=== PATIENT | female | born 1990 | race African-American/Black ===

== ENCOUNTER 2016-09-30 15:28 | Emergency (ER) | payer SELFPAY ==
[2016-09-30 15:32] VITALS: BP 117/74
--- NOTE | 2016-09-30 16:41 | ER Document Report ---
HPI - HPI Patient complains to provider of: cough congestion sore throat Onset: Yesterday Quality of pain: Other - Sore throat Severity: Moderate Pain Level: 3 Associated Symptoms: Body/muscle aches, Chills, Nonproductive cough, Rhinnorhea , Sinus pain/drainage, Sore throat Exacerbated by: Other - Swallowing Relieved by: Denies Similar symptoms previously: Yes Recently seen / treated by doctor: No - ROS ROS below otherwise negative: Yes - CONSTITUTIONAL Constitutional: REPORTS: Fever, Chills - EENT EENT: REPORTS: Sore Throat, Nasal Drainage-Purulent. DENIES: Ear Pain, Nasal Drainage-Clear, Congestion, Eye problems - NEURO Neurology: DENIES: Headache, Weakness, Vision blurred, Dizzinesss / Vertigo - CARDIOVASCULAR Cardiovascular: DENIES: Chest pain - RESPIRATORY Respiratory: REPORTS: Coughing. DENIES: Trouble Breathing - GASTROINTESTINAL Gastrointestinal: DENIES: Abdominal Pain, Nausea, Patient vomiting, Diarrhea, Constipation, Black / Bloody Stools - URINARY Urinary: DENIES: Dysuria, Urgency, Frequency - REPRODUCTIVE Reproductive: DENIES: :, Postmenopausal, Abnormal bleeding / discharge - MUSCULOSKELETAL Musculoskeletal: DENIES: Extremity pain, Back Pain, Neck Pain, Swelling - DERM Skin Color: Normal Skin Problems: None Past Medical History - General Information source: Patient - Social History Smoking Status: Current Every Day Smoker Cigarette use (# per day): Yes - 2-3 cigarettes a day Chew tobacco use (# tins/day): No Smoking Education Provided: Yes - Less than 2 minutes Frequency of alcohol use: Occasional Drug Abuse: None Occupation: technical sales specialist Lives with: Family Family History: Malignancy. denies: Arthritis, CAD, COPD, CVA, DM, Hyperlipidemia, Hypertension, Thyroid Disfunction Patient has suicidal ideation: No Patient has homicidal ideation: No - Past Medical History Cardiac Medical History: Reports: None Pulmonary Medical History: Reports: Hx Asthma EENT Medical History: Reports: None Neurological Medical History: Reports: Hx Migraine Endocrine Medical History: Reports: None Renal/ Medical History: Reports: None Malignancy Medical History: Reports: None GI Medical History: Reports: None Musculoskeltal Medical History: Reports None Skin Medical History: Reports None Psychiatric Medical History: Reports: None Traumatic Medical History: Reports: None Infectious Medical History: Reports: None Past Surgical History: Reports: Hx Section - x2 - Immunizations Hx Diphtheria, Pertussis, Tetanus Vaccination: Yes Vertical Provider Document - CONSTITUTIONAL Agree With Documented VS: Yes Exam Limitations: No Limitations General Appearance: WD/WN - INFECTION CONTROL TRAVEL OUTSIDE OF THE [place] IN LAST 30 DAYS: No - HEENT HEENT: Atraumatic, Normocephalic Notes: Purulent nasal drainage, postnasal drip, redness to throat with no enlargement or exudate to tonsils, tympanic membranes clear no swelling or discharge to the outer ear canal. - NECK Neck: Lymphadenopathy-Left, Lymphadenopathy-Right - RESPIRATORY Respiratory: Breath Sounds Normal, No Respiratory Distress, Chest Non-Tender. negative: Rales, Rhonchi, Wheezing O2 Sat by Pulse Oximetry: 99 - CARDIOVASCULAR Cardiovascular: Regular Rate, Regular Rhythm, No Murmur - GI/ABDOMEN Gastrointestinal: Abdomen Soft, Abdomen Non-Tender, No Organomegaly, Normal Bowel Sounds - BACK Back: Normal Inspection - MUSCULOSKELETAL/EXTREMETIES Musculoskeletal/Extremeties: MAEW, FROM, Non-Tender - NEURO Level of Consciousness: Awake, Alert, Appropriate - DERM Integumentary: Warm, Dry, No Rash Course - Re-evaluation Re-evalutation: 09/30/16 17:31 Strep test positive will treat patient with azithromycin as she is allergic to PCN and have follow-up with primary doctor. 09/30/16 17:37 - Vital Signs Vital signs: Temp Pulse Resp BP Pulse Ox 98.4 F 100 22 H 117/74 99 09/30/16 15:30 09/30/16 15:30 09/30/16 15:30 09/30/16 15:30 09/30/16 15:30 Discharge - Discharge Clinical Impression: Strep pharyngitis Upper respiratory infection Qualifiers: URI type: unspecified URI Qualified Code(s): J06.9 - Acute upper respiratory infection, unspecified Condition: Stable Disposition: HOME, SELF-CARE Additional Instructions: UPPER RESPIRATORY ILLNESS: You have a viral infection of the respiratory passages -- a "cold." This common infection causes nasal congestion, drainage, and often sore throat and cough. It is highly contagious. The disease usually lasts about 10 to 14 days. There is no "cure" for the viral infection -- it must run its course. If there is a complication, such as bacterial infection in the nose, sinuses, middle ear, or bronchial tubes, antibiotics may be required. The antibiotics won't affect the virus. Drink plenty of fluids. A humidifier may help. An expectorant medication or decongestant may make you more comfortable. Use acetaminophen or ibuprofen for fever or aches. See the doctor if fever persists over two days, if there is any significant worsening of your symptoms, or if you simply fail to improve as expected. STREP THROAT: Your sore throat is due to the streptococcus germ (strep throat). Strep throat usually makes you feel quite ill with fever and aches, headache, swollen sore throat, and tender bumps under the angles of the jaw. Strep throat requires antibiotic treatment. Although the sore throat may go away by itself, complications such as rheumatic fever, kidney disease, or throat abscess can occur. We usually prescribe antibiotics by mouth. Be sure to take the medicine until it's gone. If you stop early, the strep may come back. If you are vomiting, are severely ill, or can't remember to take pills, we can give you an antibiotic shot. Take acetaminophen or ibuprofen for pain and fever. Sip frequent clear liquids, or use popsicles or ice chips. Anesthetic sprays or lozenges may help. Make sure the air in the room is not too dry. Avoid using decongestants or antihistamines. Call the doctor if there is no improvement in three days, or if you have difficulty breathing, increasing throat pain, high fever, rash, or frequent vomiting. Azithromycin Azithromycin (Zithromax) is a broad spectrum antibiotic in the same class as erythromycin. It can treat a variety of bacterial infections, but is most frequently used for respiratory infections. Azithromycin is extremely long-lasting. It accumulates in body tissues and continues to kill bacteria for many days. In order to improve absorption, Azithromycin should be taken at least one hour before or two hours after a meal. It does not have the same strong tendency to upset the stomach as erythromycin and is usually very well tolerated. Patients who have had a rash or other true allergic reactions to erythromycin should not take this medication. Call if you develop gastrointestinal distress, severe diarrhea, rash, hives, itching, or shortness of breath. SMOKING: If you smoke, you should stop smoking. The tar and chemicals in cigarette smoke are harmful. Smoking has been shown to cause: emphysema chronic bronchitis lung cancer mouth and throat cancer stomach and pancreas cancer premature aging defects In addition, smoking increases ear and lung infections in children of smokers. FOLLOW-UP CARE: If you have been referred to a physician for follow-up care, call the physician s office for an appointment as you were instructed or within the next two days. If you experience worsening or a significant change in your symptoms, notify the physician immediately or return to the Emergency Department at any time for re-evaluation. Prescriptions: Azithromycin [Zithromax 250 mg Tablet] 250 mg PO ASDIR PRN #6 tablet PRN Reason: Forms: Return to Work
== END 2016-09-30 17:44 | disposition home or self-care (01) ==
LOC: ER 15:28
DX: J02.0 Streptococcal pharyngitis (principal); J06.9 Acute upper respiratory infection, unspecified; F17.210 Nicotine dependence, cigarettes, uncomplicated; M79.1 Myalgia
CPT/HCPCS: 87880; 99283

== ENCOUNTER 2018-07-05 14:54 | Emergency (ER) | payer SELFPAY ==
[2018-07-05 15:15] VITALS: BP 120/60
--- NOTE | 2018-07-05 16:29 | ER Document Report ---
HPI - HPI Time Seen by Provider: 07/05/18 16:13 Pain Level: 2 Notes: Patient is an otherwise healthy 28-year-old female who presents with chief complaint of sore throat and mild cough that started this morning. 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 She states that her employer sent her here for strep testing. Denies any fever, nausea, vomiting or diarrhea. Denies any nasal congestion. - CONSTITUTIONAL Constitutional: DENIES: Fever, Chills - EENT EENT: REPORTS: Sore Throat - redness/pain. DENIES: Ear Pain, Eye problems - NEURO Neurology: DENIES: Headache, Weakness, Vision blurred, Dizzinesss / Vertigo - CARDIOVASCULAR Cardiovascular: DENIES: Chest pain - RESPIRATORY Respiratory: DENIES: Trouble Breathing, Coughing - GASTROINTESTINAL Gastrointestinal: DENIES: Abdominal Pain, Black / Bloody Stools - URINARY Urinary: DENIES: Dysuria, Urgency, Frequency - REPRODUCTIVE Reproductive: DENIES: : - MUSCULOSKELETAL Musculoskeletal: DENIES: Extremity pain Past Medical History - General Information source: Patient - Social History Smoking Status: Never Smoker Frequency of alcohol use: None Drug Abuse: None Family History: Malignancy. denies: Arthritis, CAD, COPD, CVA, DM, Hyperlipidemia, Hypertension, Thyroid Disfunction Patient has suicidal ideation: No Patient has homicidal ideation: No Pulmonary Medical History: Reports: Hx Asthma Neurological Medical History: Reports: Hx Migraine Renal/ Medical History: Denies: Hx Peritoneal Dialysis Past Surgical History: Reports: Hx Section - x2 - Immunizations Hx Diphtheria, Pertussis, Tetanus Vaccination: Yes Vertical Provider Document - CONSTITUTIONAL Notes: PHYSICAL EXAMINATION: GENERAL: Well-appearing, well-nourished and in no acute distress. HEAD: Atraumatic, normocephalic. EYES: Pupils equal round extraocular movements intact, conjunctiva are normal. ENT: Nares patent, mild erythema to bilateral tonsils however no tonsillar swelling or exudates noted. NECK: Normal range of motion, no cervical lymphadenopathy. LUNGS: No respiratory distress, lung sounds clear to auscultation bilaterally. Musculoskeletal: Normal range of motion NEUROLOGICAL: Normal speech, normal gait. PSYCH: Normal mood, normal affect. SKIN: Warm, Dry, normal turgor, no rashes or lesions noted. - INFECTION CONTROL TRAVEL OUTSIDE OF THE [place] IN LAST 30 DAYS: No Course - Re-evaluation Re-evalutation: Patient appears well, nontoxic, vital signs within normal limits. Patient speaking in full and complete sentences. Mild tonsillar erythema but without swelling or exudates, no evidence of peritonsillar abscess. Rapid strep is negative. Likely viral source. This was discussed with the patient. Patient aware that throat culture is pending. - Vital Signs Vital signs: Temp Pulse Resp BP Pulse Ox 98.5 F 73 17 120/60 100 07/05/18 15:13 07/05/18 15:13 07/05/18 15:13 07/05/18 15:13 07/05/18 15:13 Discharge - Discharge Clinical Impression: Viral pharyngitis, Sore throat Condition: Stable Disposition: HOME, SELF-CARE Additional Instructions: Your rapid strep test today was negative. Please take Tylenol or ibuprofen for any throat pain. You may purchase an [id number] throat spray such as Chloraseptic spray or you may use warm teas with honey to help ease the pain. The throat culture is pending, someone will call you in the next 48-72 hours if the results are abnormal. Return to the emergency department if you experience worsening throat pain, difficulty breathing or difficulty swallowing. Forms: Return to Work
== END 2018-07-05 16:20 | disposition home or self-care (01) ==
LOC: ER 14:54
DX: J02.9 Acute pharyngitis, unspecified (principal); B97.89 Other viral agents as the cause of diseases classified elsewhere; R05 Cough; J45.909 Unspecified asthma, uncomplicated
CPT/HCPCS: 87070; 87880; 99283

== ENCOUNTER 2018-08-25 18:03 | Emergency (ER) | payer SELFPAY ==
[2018-08-25] MEDS ORDERED: PREDNISONE 20 MG TABLET PO ONE (18:52)
--- NOTE | 2018-08-25 18:56 | ER Document Report ---
HPI - HPI Patient complains to provider of: Skin rash Time Seen by Provider: 08/25/18 18:40 Onset/Duration: Persistent Pain Level: Denies Context: Patient complains of pruritic skin rash to the left side of her neck that is been present for 6 weeks and then started to gradually spread to the anterior chest area. Patient also reports rash to the bilateral upper extremities that she is noticed recently. Patient denies any new foods medications or detergents. Associated Symptoms: Other - Skin rash. denies: Nonproductive cough, Fever Exacerbated by: Denies Relieved by: Denies Similar symptoms previously: No Recently seen / treated by doctor: No - ROS ROS below otherwise negative: Yes Systems Reviewed and Negative: Yes All other systems reviewed and negative - CONSTITUTIONAL Constitutional: DENIES: Fever, Chills - EENT EENT: DENIES: Sore Throat - CARDIOVASCULAR Cardiovascular: DENIES: Chest pain - RESPIRATORY Respiratory: DENIES: Trouble Breathing, Coughing - GASTROINTESTINAL Gastrointestinal: DENIES: Nausea - REPRODUCTIVE Reproductive: DENIES: : - DERM Skin Color: Normal Skin Problems: Rash Past Medical History - General Information source: Patient - Social History Smoking Status: Never Smoker Frequency of alcohol use: None Drug Abuse: None 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 denies: Arthritis, CAD, COPD, CVA, DM, Hyperlipidemia, Hypertension, Thyroid Disfunction Pulmonary Medical History: Reports: Hx Asthma Neurological Medical History: Reports: Hx Migraine Renal/ Medical History: Denies: Hx Peritoneal Dialysis Past Surgical History: Reports: Hx Section - x2 - Immunizations Hx Diphtheria, Pertussis, Tetanus Vaccination: Yes Vertical Provider Document - CONSTITUTIONAL Agree With Documented VS: Yes Exam Limitations: No Limitations General Appearance: WD/WN, No Apparent Distress - INFECTION CONTROL TRAVEL OUTSIDE OF THE [place] IN LAST 30 DAYS: No - HEENT HEENT: Atraumatic, Normal ENT Exam, Normocephalic Notes: No angioedema, no potential airway compromise - NECK Neck: Normal Inspection, Supple. negative: Lymphadenopathy-Left, Lymphadenopathy-Right - RESPIRATORY Respiratory: Breath Sounds Normal, No Respiratory Distress - CARDIOVASCULAR Cardiovascular: Regular Rate, Regular Rhythm - BACK Back: Normal Inspection - MUSCULOSKELETAL/EXTREMETIES Musculoskeletal/Extremeties: MAEW, FROM - NEURO Level of Consciousness: Awake, Alert, Appropriate Motor/Sensory: No Motor Deficit - DERM Integumentary: Warm, Dry, Rash Notes: With pruritic papular rash to dorsal aspect of bilateral forearms with no erythema. Patient with annular shaped scaling plaques to left side of neck and anterior chest Course - Vital Signs Vital signs: Temp Pulse Resp BP Pulse Ox 98.4 F 81 18 120/71 99 08/25/18 18:07 08/25/18 18:07 08/25/18 18:07 08/25/18 18:07 08/25/18 18:07 Discharge - Discharge Clinical Impression: Skin rash Condition: Stable Disposition: HOME, SELF-CARE Instructions: Atopic Dermatitis (Eczema) ([facility]), Skin Fungus ([facility]), Topical Steroid Cream or Ointment ([facility]), Steroid Medication Additional Instructions: Return immediately for any new or worsening symptoms Followup with your primary care provider, call tomorrow to make a followup appointment Follow-up with dermatology for any persistent problems Prescriptions: Ketoconazole [Nizoral] 1 applic TP DAILY #30 cream.gm. Prednisone [Deltasone 10 mg Tablet] 10 mg PO ASDIR PRN #21 tablet PRN Reason: Triamcinolone Acetonide [Aristocort 0.1% Cream] 1 applic TP TID #60 gm Referrals: RENEA JACQUES DO [ACTIVE STAFF] - Follow up as needed
[2018-08-25 19:02] VITALS: BP 129/78
== END 2018-08-25 19:02 | disposition home or self-care (01) ==
LOC: ER 18:03
DX: R21 Rash and other nonspecific skin eruption (principal); J45.909 Unspecified asthma, uncomplicated
CPT/HCPCS: 99282; J7512

== ENCOUNTER 2018-10-26 22:06 | Emergency (ER) | payer SELFPAY ==
[2018-10-26 22:30] VITALS: BP 123/75
--- NOTE | 2018-10-26 23:21 | RADIOLOGY REPORT (SQ) ---
EXAM DESCRIPTION: XR ANKLE 3 OR MORE VIEWS COMPLETED DATE/TME: 10/26/2018 22:33 CLINICAL HISTORY: 28 years, Female, bone tenderness COMPARISON: None. NUMBER OF VIEWS: 3 TECHNIQUE: 3 view left ankle LIMITATIONS: None. FINDINGS: Osteopenia. Diffuse soft tissue swelling. Nondisplaced fracture of the lateral malleolus. No dislocation. IMPRESSION: Nondisplaced lateral malleolus fracture. Osteopenia. copyright 2010 [employer]- All Rights Reserved
[2018-10-27] MEDS ORDERED: IBUPROFEN 800 MG TABLET PO ONE (05:22)
--- NOTE | 2018-10-27 05:27 | ER Document Report ---
ED General - General Chief Complaint: Ankle Pain Stated Complaint: TWISTED LEFT ANKLE Time Seen by Provider: 10/27/18 05:10 Mode of Arrival: Ambulatory Information source: Patient TRAVEL OUTSIDE OF THE [place] IN LAST 30 DAYS: No - HPI Notes: Patient presents with report that she was walking out to the road to get her trash and had a inversion injury to the left ankle yesterday with pain and swelling since. No knee pain or numbness or paresthesia. No head injury or neck pain or back pain. - Related Data Allergies/Adverse Reactions: amoxicillin [Amoxicillin] Allergy (Verified 10/26/18 22:24) rash Penicillins Allergy (Verified 10/26/18 22:24) rash Past Medical History - General Information source: Patient - Social History Smoking Status: Never Smoker Frequency of alcohol use: None Drug Abuse: None Lives with: Family Family History: Malignancy. denies: Arthritis, CAD, COPD, CVA, DM, Hyperlipi demia, Hypertension, Thyroid Disfunction Pulmonary Medical History: Reports: Hx Asthma Neurological Medical History: Reports: Hx Migraine Renal/ Medical History: Denies: Hx Peritoneal Dialysis Past Surgical History: Reports: Hx Section - x2 - Immunizations Hx Diphtheria, Pertussis, Tetanus Vaccination: Yes Review of Systems - Review of Systems -: Yes All other systems reviewed and negative Physical Exam - Vital signs Vitals: Temp Pulse Resp BP Pulse Ox 98.2 F 84 18 123/75 98 10/26/18 22:28 10/26/18 22:28 10/26/18 22:28 10/26/18 22:28 10/26/18 22:28 - Notes Notes: Physical exam in general patient is in no apparent distress. HEENT atraumatic normocephalic Neck supple nontender Back nontender Examination left lower extremity shows pain over the left lateral malleolus with some swelling. No foot pain. No knee pain. Good anatomic alignment. No significant lower extremity edema. Good distal pulses and sensation and capillary refill. Course - Re-evaluation Re-evalutation: 10/27/18 05:25 X-ray of the left ankle as interpreted by radiology also reviewed by myself showed nondisplaced lateral malleolus fracture. Patient was given crutches and a stirrup splint. She will follow-up with orthopedics. She was given ibuprofen. - Vital Signs Vital signs: Temp Pulse Resp BP Pulse Ox 98.2 F 84 18 123/75 98 10/26/18 22:28 10/26/18 22:28 10/26/18 22:28 10/26/18 22:28 10/26/18 22:28 Discharge - Discharge Clinical Impression: Closed left ankle fracture Qualifiers: Encounter type: initial encounter Qualified Code(s): S82.892A - Other fracture of left lower leg, initial encounter for closed fracture Condition: Stable Disposition: HOME, SELF-CARE Instructions: Avulsion Fracture of the Ankle ([facility]), Use of Crutches ([facility]) Additional Instructions: Follow-up with orthopedics in 1 to 2 days for a left lateral malleolus fracture. Elevate leg for swelling and pain. Take ibuprofen as directed. Use crutches and splint provided. Prescriptions: Ibuprofen [Motrin 800 mg Tablet] 800 mg PO Q8HP PRN #30 tab PRN Reason: Forms: Return to Work Referrals: LILIANE HERNADEZ MD [ACTIVE STAFF] - 10/28/18
== END 2018-10-27 06:32 | disposition home or self-care (01) ==
LOC: ER 22:06
DX: S82.892A Other fracture of left lower leg, initial encounter for closed fracture (principal); M25.572 Pain in left ankle and joints of left foot; M79.89 Other specified soft tissue disorders; X50.1XXA Overexertion from prolonged static or awkward postures, initial encounter; J45.909 Unspecified asthma, uncomplicated
CPT/HCPCS: 99283

== ENCOUNTER 2019-05-15 11:41 | Emergency (ER) | payer BC ==
--- NOTE | 2019-05-15 12:58 | ER Document Report ---
ED Medical Screen (RME) - General Chief Complaint: Chest Pain Stated Complaint: CHEST/BACK PAIN SHORTNESS OF BREATH Time Seen by Provider: 05/15/19 12:51 Mode of Arrival: Ambulatory Information source: Patient Notes: 29-year-old female with no prior history presents emergency department complaints of left-sided chest pain that radiates up her left side of her neck and to her back. Reports symptoms started on Thursday. She reports sometimes worsening when she takes deep breaths or coughs. She denies history of cardiac disease. Denies family history of cardiac disease. Denies recent trips denies history of PE DVT. Denies fever vomiting diarrhea. Respiratory rate even unlabored I have greeted and performed a rapid initial assessment of this patient. A comprehensive ED assessment and evaluation of the patient, analysis of test results and completion of the medical decision making process will be conducted by additional ED providers. TRAVEL OUTSIDE OF THE [place] IN LAST 30 DAYS: No - Related Data Allergies/Adverse Reactions: amoxicillin [Amoxicillin] Allergy (Verified 05/15/19 12:54) rash Penicillins Allergy (Verified 05/15/19 12:54) rash Past Medical History - Social History Chew tobacco use (# tins/day): No Frequency of alcohol use: None Drug Abuse: None Pulmonary Medical History: Reports: Hx Asthma Neurological Medical History: Reports: Hx Migraine Renal/ Medical History: Denies: Hx Peritoneal Dialysis Past Surgical History: Reports: Hx Section - x2 - Immunizations Hx Diphtheria, Pertussis, Tetanus Vaccination: Yes Physical Exam - Vital signs Vitals: Temp Pulse Resp BP Pulse Ox 98.3 F 88 18 134/79 H 99 05/15/19 12:05/15/19 12:05/15/19 12:05/15/19 12:05/15/19 12:09 Course - Vital Signs Vital signs: Temp Pulse Resp BP Pulse Ox 98.3 F 88 18 134/79 H 99 05/15/19 12:05/15/19 12:05/15/19 12:05/15/19 12:05/15/19 12:09
--- NOTE | 2019-05-15 13:22 | RADIOLOGY REPORT (SQ) ---
EXAM DESCRIPTION: CHEST 2 VIEWS COMPLETED DATE/TIME: 05/15/2019 1:06 pm REASON FOR STUDY: CP COMPARISON: Chest films 11/14/2015, 12/17/2007 EXAM PARAMETERS: NUMBER OF VIEWS: two views TECHNIQUE: Digital Frontal and Lateral radiographic views of the chest acquired. RADIATION DOSE: NA LIMITATIONS: none FINDINGS: LUNGS AND PLEURA: No opacities, masses or pneumothorax. No pleural effusion. MEDIASTINUM AND HILAR STRUCTURES: No masses or contour abnormalities. HEART AND VASCULAR STRUCTURES: Stable moderate cardiomegaly BONES: No acute findings. HARDWARE: None in the chest. OTHER: No other significant finding. IMPRESSION: Stable moderate cardiomegaly TECHNICAL DOCUMENTATION: JOB ID: [id number] [employer]- All Rights Reserved Reading location - IP/workstation name: [email or web address]
[2019-05-15 13:52] LABS: APPEARANCE,URINE CLEAR; BILIRUBIN,URINE NEGATIVE (NEGATIVE); COLOR,URINE YELLOW; GLUCOSE, URINE NEGATIVE (NEGATIVE); KETONES,URINE NEGATIVE (NEGATIVE); LEUKOCYTE ESTERASE,URINE NEGATIVE (NEGATIVE); NITRITE,URINE NEGATIVE (NEGATIVE); PROTEIN,URINE NEGATIVE (NEGATIVE)
[2019-05-15 13:54] LABS: ABSOLUTE EOSINOPHILS # (AUTO) 0.1 10^3/uL (0.0-0.6); ABSOLUTE MONOCYTES (AUTO) 0.8 10^3/uL (0.1-1.4); ABSOLUTE NEUT (AUTO) 6.2 10^3/uL (1.7-8.2); BASOPHILS % (AUTO) 0.4 % (0-2); EOSINOPHILS % (AUTO) 1.1 % (0-6); HEMATOCRIT 34.2 % (36.0-47.0); LYMPHOCYTES % (AUTO) 29.6 % (13-45); MEAN CORPUSCULAR HEMOGLOBIN 31.2 pg (27.0-33.4); MEAN CORPUSCULAR HGB CONC 35.2 g/dL (32.0-36.0); MEAN CORPUSCULAR VOLUME 89 fl (80-97); MONOCYTES % (AUTO) 8.2 % (3-13); PLATELET COUNT 295 10^3/uL (150-450); RED BLOOD COUNT 3.85 10^6/uL (3.72-5.28); SEGMENTED NEUTROPHILS % (AUTO) 60.7 % (42-78); TOTAL CELLS COUNTED % (AUTO) 100 %; WHITE BLOOD COUNT 10.3 10^3/uL (4.0-10.5)
[2019-05-15 14:09] LABS: ALBUMIN 3.9 g/dL (3.5-5.0); ALKALINE PHOSPHATASE 80 U/L (38-126); ANION GAP 8 (5-19); ASPARTATE AMINO TRANSFERASE 23 U/L (14-36); BILIRUBIN,DIRECT 0.3 mg/dL (0.0-0.4); BILIRUBIN,TOTAL 0.3 mg/dL (0.2-1.3); BLOOD UREA NITROGEN 13 mg/dL (7-20); CALCIUM 9.3 mg/dL (8.4-10.2); CARBON DIOXIDE 29 mmol/L (22-30); CHLORIDE 104 mmol/L (98-107); GLUCOSE 74 mg/dL (75-110); POTASSIUM 4.3 mmol/L (3.6-5.0); TOTAL PROTEIN 7.5 g/dL (6.3-8.2)
--- NOTE | 2019-05-15 16:02 | EKG REPORT ---
SEVERITY:- BORDERLINE ECG - SINUS RHYTHM BORDERLINE T ABNORMALITIES, ANTERIOR LEADS : Confirmed by: Nicolás Ta MD 15-May-2019 16:01:57
--- NOTE | 2019-05-15 16:30 | ER Document Report ---
ED Cardiac - General Chief Complaint: Chest Pain Stated Complaint: CHEST/BACK PAIN SHORTNESS OF BREATH Time Seen by Provider: 05/15/19 12:51 Primary Care Provider: WILLIAM BRICEÑO PA-C [Primary Care Provider] - Follow up as needed Mode of Arrival: Ambulatory Notes: CHIEF COMPLAINT: Chest pain for 36 hours HPI: 29-year-old female presenting to the emergency department for evaluation of left chest discomfort over the last 36 hours. Denies trauma. Denies fever. Denies cough. States that the pain began in the left upper chest, and now seems to be in the left posterior back and shoulder region. Patient states that it specifically worsens with position and movement of the left shoulder arm or palpation of the chest wall. Patient states that her daughter has been sick with an upper respiratory infection recently. Patient states that it does hurt to take a deep breath in but also to twist and turn. She denies shortness of breath ROS: See HPI - all other systems were reviewed and are otherwise negative Constitutional: no fever Eyes: no drainage, no blurred vision ENT: no runny nose, no sore throat Cardiovascular: + chest pain Resp: no SOB, no cough GI: no vomiting, no diarrhea, no abdominal pain : no dysuria Integumentary: no rash Allergy: no hives Musculoskeletal: no extremity pain or swelling Neurological: no numbness/tingling, no weakness MEDICATIONS: I agree with the patient medications as charted by the RN. ALLERGIES: I agree with the allergies as charted by the RN. PAST MEDICAL HISTORY/PAST SURGICAL HISTORY: Reviewed and agree as charted by RN. SOCIAL HISTORY: Reviewed and agree as charted by RN. FAMILY HISTORY: No significant familial comorbid conditions directly related to patient complaint EXAM: Reviewed vital signs as charted by RN. CONSTITUTIONAL: Alert and oriented and responds appropriately to questions. Well-appearing; well-nourished, no acute distress affected skin twice a day for 1 week HEAD: Normocephalic; atraumatic EYES: PERRL; Conjunctivae clear, sclerae non-icteric ENT: normal nose; no rhinorrhea; moist mucous membranes; pharynx without lesions noted, no uvula edema or deviation, no tonsillar hypertrophy, phonation normal NECK: Supple without meningismus; non-tender; no cervical lymphadenopathy, no masses CARD: RRR; no murmurs, no clicks, no rubs, no gallops; symmetric distal pulses RESP: Normal chest excursion without splinting or tachypnea; breath sounds clear and equal bilaterally; no wheezes, no rhonchi, no rales, pulse oximetry 99% on room air not hypoxic. There is tenderness on palpation of the left chest, left shoulder and left posterior thorax Bactroban. No visible rash for 1 week ABD/GI: Normal bowel sounds; non-distended; soft, non-tender, no rebound, no guarding; no palpable organomegaly or masses. BACK: The back appears normal and is non-tender to palpation, there is no CVA tenderness EXT: Normal ROM in all joints; non-tender to palpation; no cyanosis, no effusions, no edema SKIN: Normal color for age and race; warm; dry; good turgor; no acute lesions noted NEURO: Moves all extremities equally; Motor and sensory function intact PSYCH: The patient's mood and manner are appropriate. Grooming and personal hygiene are appropriate. MDM: 29-year-old obese female presenting for left chest pain and shoulder pain for 36 hours. The pain is completely reproducible with palpation and movement of the torso and shoulder. Patient is PERC negative also. One set of cardiac enzymes was obtained which is negative, pain has been constant since origin. No indication for second set at this time. Will give Toradol here, naproxen at home, return instructions TRAVEL OUTSIDE OF THE [place] IN LAST 30 DAYS: No - Related Data Allergies/Adverse Reactions: amoxicillin [Amoxicillin] Allergy (Verified 05/15/19 12:54) rash Penicillins Allergy (Verified 05/15/19 12:54) rash Past Medical History - General Information source: Patient - Social History Smoking Status: Never Smoker Chew tobacco use (# tins/day): No Frequency of alcohol use: None Drug Abuse: None Family History: Malignancy. denies: Arthritis, CAD, COPD, CVA, DM, Hyperlipidemia, Hypertension, Thyroid Disfunction Patient has suicidal ideation: No Patient has homicidal ideation: No Pulmonary Medical History: Reports: Hx Asthma Neurological Medical History: Reports: Hx Migraine Renal/ Medical History: Denies: Hx Peritoneal Dialysis Past Surgical History: Reports: Hx Section - x2 - Immunizations Hx Diphtheria, Pertussis, Tetanus Vaccination: Yes Physical Exam - Vital signs Vitals: Temp Pulse Resp BP Pulse Ox 98.3 F 88 18 134/79 H 99 05/15/19 12:09 05/15/19 12:09 05/15/19 12:09 05/15/19 12:09 05/15/19 12:09 Course - Vital Signs Vital signs: Temp Pulse Resp BP Pulse Ox 98.3 F 88 18 134/79 H 99 05/15/19 12:09 05/15/19 12:09 05/15/19 12:09 05/15/19 12:09 05/15/19 12:09 - Laboratory Result Diagrams: 05/15/19 13:20 05/15/19 13:20 Laboratory results interpreted by me: 05/15/19 05/15/19 05/15/19 13:20 13:20 13:20 Hct 34.2 L Glucose 74 L Urine Urobilinogen 2.0 H Discharge - Discharge Clinical Impression: Chest wall pain Condition: Stable Disposition: HOME, SELF-CARE Additional Instructions: Take the medications as prescribed, follow-up with your primary care provider for reevaluation call for appointment. If you have worsening pain, shortness of breath or onset of fever return for reevaluation as discussed Prescriptions: Naproxen 500 mg PO BID PRN #14 tablet PRN Reason: Referrals: WILLIAM BRICEÑO PA-C [Primary Care Provider] - Follow up as needed
[2019-05-15] MEDS ORDERED: KETOROLAC TROMETHAMINE 60 MG/2 ML SDV IM ONE (16:31)
[2019-05-15 17:14] VITALS: BP 112/63
== END 2019-05-15 17:00 | disposition home or self-care (01) ==
LOC: ER 11:41
DX: R07.89 Other chest pain (principal); R07.1 Chest pain on breathing; M25.519 Pain in unspecified shoulder; J45.909 Unspecified asthma, uncomplicated; Z88.0 Allergy status to penicillin
CPT/HCPCS: 93005; 99283; 36415; 85025; 81025; 80053; 81001; 84484; 71046; 93010; J1885

== ENCOUNTER 2020-02-16 16:42 | Emergency (ER) | payer BC, MEDICAID ==
[2020-02-16] MEDS ORDERED: ACETAMINOPHEN 325 MG TABLET PO ONE (17:34)
--- NOTE | 2020-02-16 17:34 | ER Document Report ---
ED Medical Screen (RME) - General Chief Complaint: Post Problem Stated Complaint: POST PROBLEM Time Seen by Provider: 02/16/20 17:29 Primary Care Provider: WILLIAM BRICEÑO PA-C [Primary Care Provider] - Follow up as needed Mode of Arrival: Wheelchair Information source: Patient Notes: 29-year-old female presented to ED for complaint of back pain swelling to the left leg numbness to the back of the leg and a temperature of 102.2 since 125 this afternoon. Her temperature is 102.2 at this time. She states she has not had any Tylenol or ibuprofen since she took her temperature. She states she did deliver a baby at [facility] on Thursday. She states they did do an epidural and left the catheter in the back for anesthesia during the delivery. She states the fever just started today. She states the numbness and swelling to the leg started yesterday. She called the pricer who delivered the baby yesterday and she was told to come straight to the emergency room. Patient is alert oriented respirations regular nonlabored at this time. Will get blood urine blood cultures start IV fluids and she will be seen by another provider. I have greeted and performed a rapid initial assessment of this patient. A comprehensive ED assessment and evaluation of the patient, analysis of test results and completion of medical decision making process will be conducted by an additional ED providers. TRAVEL OUTSIDE OF THE [place] IN LAST 30 DAYS: No - Related Data Allergies/Adverse Reactions: amoxicillin [Amoxicillin] Allergy (Verified 05/15/19 12:54) rash Penicillins Allergy (Verified 05/15/19 12:54) rash Past Medical History Pulmonary Medical History: Reports: Hx Asthma Neurological Medical History: Reports: Hx Migraine Renal/ Medical History: Denies: Hx Peritoneal Dialysis Past Surgical History: Reports: Hx Section - x2 - Immunizations Hx Diphtheria, Pertussis, Tetanus Vaccination: Yes Physical Exam - Vital signs Vitals: Temp Pulse Resp BP Pulse Ox 98.7 F 106 H 16 115/68 98 02/16/20 16:53 02/16/20 16:53 02/16/20 16:53 02/16/20 16:53 02/16/20 16:53 Course - Vital Signs Vital signs: Temp Pulse Resp BP Pulse Ox 98.7 F 106 H 16 115/68 98 02/16/20 16:53 02/16/20 16:53 02/16/20 16:53 02/16/20 16:53 02/16/20 16:53 Doctor's Discharge - Discharge Referrals: WILLIAM BRICEÑO PA-C [Primary Care Provider] - Follow up as needed
[2020-02-16] MEDS ORDERED: LEVOFLOXACIN 500 MG/D5W RTU 500 MG/100 ML RTUPB IV ONE (17:46)
[2020-02-16] MEDS: NORMAL SALINE 1000 ML 1,000 ML IV PRN ×2 (17:57→20:22)
--- NOTE | 2020-02-16 18:03 | ER Document Report ---
ED GI/ - General Chief Complaint: Post Problem Stated Complaint: POST PROBLEM Time Seen by Provider: 02/16/20 17:29 Primary Care Provider: WILLIAM BRICEÑO PA-C [PHYSICIAN SITE SUPERVISING TECHNICAL OPERATOR] - Follow up as needed Mode of Arrival: Wheelchair Information source: Patient Notes: ED Medical Screen (Kulwant washburn)) - General Chief Complaint: Post Problem Stated Complaint: POST PROBLEM Time Seen by Provider: 02/16/20 17:29 Primary Care Provider: WILLIAM BRICEÑO PA-C [Primary Care Provider] - Follow up as needed Mode of Arrival: Wheelchair Information source: Patient Notes: 29-year-old female presented to ED for complaint of back pain swelling to the left leg numbness to the back of the leg and a temperature of 102.2 since 125 this afternoon. Her temperature is 102.2 at this time. She states she has not had any Tylenol or ibuprofen since she took her temperature. She states she did deliver a baby at [facility] on Thursday. She states they did do an epidural and left the catheter in the back for anesthesia during the delivery. She states the fever just started today. She states the numbness and swelling to the leg started yesterday. She called the clean up supervisor who delivered the baby yesterday and she was told to come straight to the emergency room. Patient is alert oriented respirations regular nonlabored at this time. Will get blood urine blood cultures start IV fluids and she will be seen by another provider. MY NOTES 29-year-old black female arrives by POV with chief complaint of left leg pain and numbness to the calf and thigh with temperature around 102.9 upon arrival. Patient reports she has a history of migraines since she was a teenager 13 years of age and also her sister has the same condition. Patient is now with ages of children at 14 years old 7 years old 3 years old and now a . All of these children were C-sections. Patient reports she just had her baby at 10 AM on 09 February by [facility]. Patient had a spinal block for this. Patient denies any sore throat eye problems or vision problems earache nuchal rigidity hemoptysis cough skin rash dysuria. Her wound is clean and dry. Patient did have complication with this with some ectopic. Patient's heart rate is around 99 bpm. She is satting 99% on room air. Respiratory rate is 20. She does report her 4-year-old daughter has some URI symptoms but has no fever. Patient denies any other complications with any of the other pregnancies or deliveries. There is no family history of any DVTs or pulmonary emboli. Ashley stress test technician advises at 1850 that the patient has a nega tive study for DVT of left leg. Patient reports she had a Parks in place while she was in hospital for her . TRAVEL OUTSIDE OF THE [place] IN LAST 30 DAYS: No - HPI Patient complains to provider of: Other - fever Severity at maximum: Mild Pain Level: Denies Context: - Related Data Allergies/Adverse Reactions: Penicillins Allergy (Intermediate, Verified 02/16/20 19:15) Pruritis vancomycin [From Vancocin] Allergy (Intermediate, Verified 02/16/20 19:15) Urticaria amoxicillin [Amoxicillin] Allergy (Verified 05/15/19 12:54) rash Past Medical History - General Information source: Patient - Social History Smoking Status: Never Smoker Cigarette use (# per day): No Chew tobacco use (# tins/day): No Smoking Education Provided: No Frequency of alcohol use: None Lives with: Family Family History: Malignancy. denies: Arthritis, CAD, COPD, CVA, DM, Hyperlipidemia, Hypertension, Thyroid Disfunction Patient has suicidal ideation: No Patient has homicidal ideation: No Pulmonary Medical History: Reports: Hx Asthma Neurological Medical History: Reports: Hx Migraine Renal/ Medical History: Denies: Hx Peritoneal Dialysis Past Surgical History: Reports: Hx Section - x2 - Immunizations Hx Diphtheria, Pertussis, Tetanus Vaccination: Yes Physical Exam - Vital signs Vitals: Temp Pulse Resp BP Pulse Ox 98.7 F 106 H 16 115/68 98 02/16/20 16:53 02/16/20 16:53 02/16/20 16:53 02/16/20 16:53 02/16/20 16:53 Interpretation: Tachycardic, Febrile - General General appearance: Appears well, Alert - HEENT Head: Normocephalic, Atraumatic Eyes: Normal Pupils: PERRL - Respiratory Respiratory status: No respiratory distress Chest status: Nontender Breath sounds: Normal Chest palpation: Normal - Cardiovascular Rhythm: Regular Heart sounds: Normal auscultation Murmur: No - Abdominal Inspection: Normal Distension: No distension Bowel sounds: Normal Tenderness: Nontender Organomegaly: No organomegaly - Rectal Hemorrhoids: Other - deferred - Genitourinary Bimanuel exam: Other - deferred - Back Back: Normal, Nontender - Extremities General upper extremity: Normal inspection, Nontender, Normal color, Normal ROM, Normal temperature General lower extremity: Normal inspection, Nontender, Normal color, Normal ROM, Normal temperature, Normal weight bearing. No: Kenney's sign - Neurological Neuro grossly intact: Yes Cognition: Normal Orientation: AAOx4 Blauvelt Coma Scale Eye Opening: Spontaneous Blau[place] Coma Scale Verbal: Oriented Cheyanne Coma Scale Motor: Obeys Commands Cheyanne Coma Scale Total: 15 Speech: Normal Motor strength normal: LUE, RUE, LLE, RLE Sensory: Normal - Psychological Associated symptoms: Normal affect, Normal mood - Skin Skin Temperature: Warm Skin Moisture: Dry Skin Color: Normal Course - Vital Signs Vital signs: Temp Pulse Resp BP Pulse Ox 100.9 F H 106 H 16 115/68 98 02/16/20 19:19 02/16/20 16:53 02/16/20 16:53 02/16/20 16:53 02/16/20 18:00 - Laboratory Result Diagrams: 02/16/20 17:50 02/16/20 17:50 Laboratory results interpreted by me: 02/16/20 02/16/20 02/16/20 17:50 17:50 20:58 WBC 13.7 H RBC 3.52 L Hgb 10.6 L Hct 31.2 L RDW 14.5 H Absolute Neuts (auto) 10.2 H Sodium 135.6 L Lactic Acid 0.6 L Alkaline Phosphatase 149 H Albumin 3.2 L Urine Blood Ur Leukocyte Esterase 02/16/20 21:45 WBC RBC Hgb Hct RDW Absolute Neuts (auto) Sodium Lactic Acid Alkaline Phosphatase Albumin Urine Blood LARGE H Ur Leukocyte Esterase MODERATE H - Diagnostic Test Radiology reviewed: Reports reviewed - EKG Interpretation by Me EKG shows normal: Sinus rhythm Rate: Tachycardia Rhythm: NSR - EKG was [address] elevation no ST depression no T wave elevation no T wave depression. I read this EKG and I agree with machine as well. Discharge - Discharge Clinical Impression: S/P , Left leg pain Fever Qualifiers: Fever type: unspecified Qualified Code(s): R50.9 - Fever, unspecified UTI (urinary tract infection) Qualifiers: Urinary tract infection type: site unspecified Hematuria presence: without hematuria Qualified Code(s): N39.0 - Urinary tract infection, site not specified Condition: Good Disposition: HOME, SELF-CARE Additional Instructions: Follow-up with your [employer] doctor call office tomorrow and advised of your presents here in the ER tonight. Your labs were within normal limits except for UTI. It appears CT of chest and ultrasound of the leg were within normal limits. CT head within normal limits. Prescriptions: Nitrofurantoin Monohyd/M-Cryst [Macrobid 100 mg Capsule] 100 mg PO BID #15 cap Referrals: WILLIAM BRICEÑO PA-C [PHYSICIAN SITE SUPERVISING TECHNICAL OPERATOR] - Follow up as needed
--- NOTE | 2020-02-16 18:25 | EKG REPORT ---
SEVERITY:- BORDERLINE ECG - SINUS RHYTHM BORDERLINE T ABNORMALITIES, INFERIOR LEADS : Confirmed by: Nicolás Ta MD 16-Feb-2020 18:24:52
[2020-02-16 18:26] LABS: ABSOLUTE LYMPHOCYTES (AUTO) 2.1 10^3/uL (0.5-4.7); ABSOLUTE MONOCYTES (AUTO) 1.3 10^3/uL (0.1-1.4); ABSOLUTE NEUT (AUTO) 10.2 10^3/uL (1.7-8.2); BASOPHILS % (AUTO) 0.1 % (0-2); EOSINOPHILS % (AUTO) 0.3 % (0-6); HEMATOCRIT 31.2 % (36.0-47.0); HEMOGLOBIN 10.6 g/dL (12.0-15.5); LYMPHOCYTES % (AUTO) 15.5 % (13-45); MEAN CORPUSCULAR HEMOGLOBIN 30.2 pg (27.0-33.4); MEAN CORPUSCULAR VOLUME 89 fl (80-97); MONOCYTES % (AUTO) 9.8 % (3-13); PLATELET COUNT 337 10^3/uL (150-450); RED BLOOD COUNT 3.52 10^6/uL (3.72-5.28); RED CELL DISTRIBUTION WIDTH 14.5 % (11.5-14.0); SEGMENTED NEUTROPHILS % (AUTO) 74.3 % (42-78); TOTAL CELLS COUNTED % (AUTO) 100 %; VENOUS BLOOD BASE EXCESS 1.3 mmol/L; VENOUS BLOOD PCO2 41.4 mmHg (35-63); VENOUS BLOOD PH 7.42 (7.30-7.42); WHITE BLOOD COUNT 13.7 10^3/uL (4.0-10.5)
[2020-02-16 18:32] LABS: INTERNATIONAL RATION (INR) 1.07; PROTHROMBIN TIME 14.1 SEC (11.4-15.4)
[2020-02-16 18:47] LABS: ALBUMIN 3.2 g/dL (3.5-5.0); ALKALINE PHOSPHATASE 149 U/L (38-126); ANION GAP 11 (5-19); ASPARTATE AMINO TRANSFERASE 20 U/L (14-36); BILIRUBIN,DIRECT 0.2 mg/dL (0.0-0.4); BILIRUBIN,TOTAL 0.6 mg/dL (0.2-1.3); BLOOD UREA NITROGEN 7 mg/dL (7-20); CALCIUM 8.7 mg/dL (8.4-10.2); CARBON DIOXIDE 24 mmol/L (22-30); CHLORIDE 101 mmol/L (98-107); GLUCOSE 76 mg/dL (75-110); POTASSIUM 3.7 mmol/L (3.6-5.0); TOTAL PROTEIN 6.4 g/dL (6.3-8.2)
[2020-02-16] MEDS: VANCOMYCIN HCL INJ 1000 MG VIAL IV ONE ×2 (19:09→20:19)
[2020-02-16] MEDS ORDERED: DIPHENHYDRAMINE HCL 50 MG/ML VIAL IV ONE (19:10)
--- NOTE | 2020-02-16 19:34 | RADIOLOGY REPORT (SQ) ---
EXAM DESCRIPTION: VENOUS UNILATERAL LOWER IMAGES COMPLETED DATE/TIME: 02/16/2020 6:07 pm REASON FOR STUDY: left leg swelling pain COMPARISON: None. TECHNIQUE: Dynamic and static starks scale and color images acquired of the left leg venous system. Se lected spectral images acquired with additional compression and augmentation maneuvers. The contralat eral common femoral vein and saphenofemoral junction were also imaged. Images stored on PACS. LIMITATIONS: None. FINDINGS: COMMON FEMORAL: Normal phasicity, compression and augmentation. No visualized echogenic ma terial on starks scale. No defects on color images. FEMORAL: Normal compression and augmentation. No visualized echogenic material on starks scale. No defe cts on color images. POPLITEAL: Normal compression, augmentation. No visualized echogenic material on starks scale. No defec ts on color images. CALF VESSELS: Normal compression, augmentation. No visualized echogenic material on starks scale. No de fects on color images. GSV and SSV: Normal compression, augmentation. No visualized echogenic material on starks scale. No def ects on color images. ANY DEEP VENOUS INSUFFICIENCY: Not evaluated. ANY EVIDENCE OF POPLITEAL CYST: No. OTHER: No other significant finding. CONTRALATERAL COMMON FEMORAL VEIN AND SAPHENOFEMORAL JUNCTION: Normal phasicity, compression and augmentation. No visualized echogenic material on starks scale. No de fects on color images. IMPRESSION: NO EVIDENCE OF DVT OR SVT IN THE LEFT LEG. TECHNICAL DOCUMENTATION: JOB ID: [id number] 2010 [employer]- All Rights Reserved Reading location - IP/workstation name: [email or web address]
--- NOTE | 2020-02-16 20:31 | RADIOLOGY REPORT (SQ) ---
CT HEAD WITHOUT IV CONTRAST CLINICAL STATEMENT: headache TECHNIQUE: Axial CT images from skull base to vertex without IV contrast. This exam was performed according to our departmental dose optimization program, and includes the following measures where applicable: automated exposure control, adjustment of the mAs and/or kVp according to patient size and/or exam, and an iterative reconstruction algorithm. COMPARISON: Unenhanced CT scan of the brain August 21, 2013. The report for this exam is not available. FINDINGS: There is no acute intracranial hemorrhage, mass, mass effect or abnormal extra-axial fluid collection. No evidence of an acute territorial infarct is identified. The ventricles are normal. Calvaria: The skull base and calvaria demonstrate no abnormality. Paranasal sinuses: Visualized portions of the orbits and paranasal sinuses are unremarkable. skull base: Unremarkable IMPRESSION: No acute process. No significant interval change.
--- NOTE | 2020-02-16 20:34 | RADIOLOGY REPORT (SQ) ---
EXAM DESCRIPTION: CT pulmonary the chest with IV contrast CLINICAL HISTORY: 29 years Female; post fever TECHNIQUE: CT angiogram of the chest using intravenous contrast.. MIP reconstructions were performed. All CT scans at this facility use dose modulation, iterative reconstruction, and/or weight based dosing when appropriate to reduce radiation dose to as low as reasonably achievable. COMPARISON: None. FINDINGS: Chest: Vascular: Motion artifact is present throughout the exam which limits diagnostic utility. There is no large or central PE seen. Small or peripheral PE would be missed on this exam. Lungs: Lung volumes are low. Motion artifact is present throughout. There is mild dependent density in the lung bases posteriorly. No pulmonary nodules or masses. Thoracic aorta is of normal caliber. No aneurysm. No dissection. Mediastinum: Four-chamber cardiac enlargement is seen. No pericardial abnormality. There is prominent soft tissue in the anterior mediastinum which most likely is residual findings. No definitive mass or lymphadenopathy. Thyroid gland appears normal. Bones and soft tissues: Unremarkable Upper Abdomen: Visualized portion of the upper abdomen is unremarkable. IMPRESSION: 1. Limited examination secondary to low lung volumes and patient motion. No large or central PE is seen. 2. Mild dependent density in the lung bases posteriorly.
[2020-02-16 21:59] LABS: APPEARANCE,URINE CLEAR; BILIRUBIN,URINE NEGATIVE (NEGATIVE); COLOR,URINE STRAW; GLUCOSE, URINE NEGATIVE (NEGATIVE); KETONES,URINE NEGATIVE (NEGATIVE); LEUKOCYTE ESTERASE,URINE MODERATE (NEGATIVE); NITRITE,URINE NEGATIVE (NEGATIVE); PROTEIN,URINE NEGATIVE (NEGATIVE); URINE SPECIFIC GRAVITY 1.023; UROBILINOGEN,URINE NEGATIVE mg/dL (<2.0)
[2020-02-16 22:54] VITALS: BP 126/74
== END 2020-02-16 23:00 | disposition home or self-care (01) ==
LOC: ER 16:42
DX: O90.89 Other complications of the puerperium, not elsewhere classified (principal); M79.662 Pain in left lower leg; M79.652 Pain in left thigh; R20.0 Anesthesia of skin; R00.0 Tachycardia, unspecified; O86.20 Urinary tract infection following delivery, unspecified; O99.53 Diseases of the respiratory system complicating the puerperium; J45.909 Unspecified asthma, uncomplicated; Z98.890 Other specified postprocedural states; Z88.0 Allergy status to penicillin; Z88.1 Allergy status to other antibiotic agents; Z20.828 Contact with and (suspected) exposure to other viral communicable diseases
CPT/HCPCS: 93005; 99285; 96361; 96375; 96365; 36415; 87040; 87070; 87086; 87880; 83605; 85025; 85610; 80053; 81001; 82803; 93971; 70450; 71275; 93010; U0003; J1956; J1200; J7030; C9803; 87635; J3370